=== PATIENT | male | born 1980 | race Caucasian/White ===

== ENCOUNTER 2019-02-26 17:10 | Emergency (ER) | payer BC ==
[~2019-02-26] VITALS: Ht 188 cm; Wt 90.7 kg
[2019-02-26 17:15] VITALS: BP_SYST 115
--- NOTE | 2019-02-26 17:15 | NUR ---
BROUGHT BACK TO BED #3 PT USING CRUTCHES, PLACED IN BED AND TRIAGED. REPORT GIVEN TO BETY
--- NOTE | 2019-02-26 17:25 | NUR ---
Patient comes to ER in personal vehicle accompanied by significant other, patient is AOx4, verbal and ambulatory. Patient has complaint of pain to LT leg, more to LT Knee and LT Ankle. Patient states that he doesn't remember falling due to recreational drinking but his partner says he definately "fell and banged up his knee" AROM of toes and ankle with pain, no loss of sensation to toes, pulses regular. No other complaint or injury at this time.
--- NOTE | 2019-02-26 17:30 | NUR ---
DR ALEMAN at bedside for ER evaluation.
[2019-02-26] MEDS ORDERED: IBUPROFEN 800 MG TABLET PO ONE (18:30)
--- NOTE | 2019-02-26 18:30 | NUR ---
Medicated per MD orders. Will cont to monitor
[2019-02-26] MEDS ORDERED: KETOROLAC TROMETHAMINE 30 MG VIAL ONE (19:14)
--- NOTE | 2019-02-26 19:25 | NUR ---
NICKIE wrap applied to left knee, non-constrictively, left knee immobilizer applied. Pt refused to have NICKIE wrap placed to left ankle. Pt states that he would rather do it at home. NICKIE wrap provided. Pt fitted with crutches with return demonstration.
[2019-02-26 19:30] VITALS: BP_SYST 128
--- NOTE | 2019-02-26 19:30 | NUR ---
Patient given written and verbal discharge instructions and verbalizes understanding. ER MD discussed with patient the results and treatment provided. Patient in stable condition. ID arm band removed. Rx of Atarax and Motrin given. Patient educated on pain management and to follow up with PMD. Pain Scale 1/10. Opportunity for questions provided and answered. Medication side effect fact sheet provided.
== END 2019-02-26 19:30 | disposition home or self-care (01) ==
LOC: SED 17:10
DX: S83.92XA Sprain of unspecified site of left knee, initial encounter (principal); S93.402A Sprain of unspecified ligament of left ankle, initial encounter; G47.00 Insomnia, unspecified; W19.XXXA Unspecified fall, initial encounter; Y93.89 Activity, other specified; Y92.89 Other specified places as the place of occurrence of the external cause; Y99.8 Other external cause status
CPT/HCPCS: 29505; 73564; 73610; 99283; J1885

== ENCOUNTER 2023-01-08 00:51 | Emergency (ER) | payer BC ==
[~2023-01-08] VITALS: Ht 188 cm; Wt 96.2 kg
[2023-01-08 01:00] VITALS: BP_SYST 144
--- NOTE | 2023-01-08 01:14 | NUR ---
Patient to ER bed 08 to gown for evaluation. Side rails up. Report given to KEYANNA PASCUAL.
--- NOTE | 2023-01-08 01:20 | NUR ---
First contact. Pt placed in gown and on monitor.
[2023-01-08] MEDS ORDERED: ONDANSETRON HCL 4 MG/2 ML VIAL IVP ONE (01:30)
[2023-01-08] MEDS ORDERED: NACL 0.9% 1,000 ML IV ONE (01:30)
[2023-01-08] MEDS ORDERED: MORPHINE 2 MG/ML INJ. SYRINGE IVP ONE (01:30)
[2023-01-08 02:09] LABS: BASOPHILS # (AUTO) 0.1 K/uL (0.0-0.2); BASOPHILS % (AUTO) 0.9 % (0.0-2.0); EOSINOPHILS # (AUTO) 0.3 K/uL (0.0-0.4); EOSINOPHILS % (AUTO) 3.5 % (0.0-4.0); HEMATOCRIT 41.3 % (36-54); HEMOGLOBIN 14.3 g/dL (14.0-18.0); LYMPHOCYTES # (AUTO) 2.8 K/uL (1.0-5.5); LYMPHOCYTES % (AUTO) 33.5 % (20.5-51.5); MEAN CORPUSCULAR HEMOGLOBIN 30 pg (27-31); MEAN CORPUSCULAR HGB CONC 35 % (32-36); MEAN CORPUSCULAR VOLUME 87 fL (79.0-98.0); MONOCYTES # (AUTO) 0.5 K/uL (0.0-1.0); MONOCYTES % (AUTO) 5.9 % (1.7-9.3); NEUTROPHILS # (AUTO) 4.7 K/uL (1.8-7.7); NEUTROPHILS % (AUTO) 56.2 % (40.0-70.0); PLATELET COUNT (AUTO) 210 K/uL (130-430); RED BLOOD CELL COUNT(AUTO) 4.75 MIL/uL (4.2-6.2); WHITE BLOOD COUNT (AUTO) 8.3 K/uL (4.8-10.8)
[2023-01-08 02:23] LABS: CALCIUM 9.1 mg/dL (8.4-11.0); CREATININE 1.11 mg/dL (0.55-1.30); TOTAL BILIRUBIN 0.5 mg/dL (0.0-1.0)
[2023-01-08 02:24] LABS: ALBUMIN 4.1 g/dL (3.4-4.8)
[2023-01-08 02:56] LABS: BILIRUBIN,URINE NEGATIVE (NEGATIVE); BLOOD, URINE NEGATIVE (NEGATIVE); CLARITY/URINE CLEAR (CLEAR); COLOR,URINE YELLOW (YELLOW); GLUCOSE,URINE NEGATIVE (NEGATIVE); KETONES,URINE NEGATIVE (NEGATIVE); LEUKOCYTE ESTERASE ,URINE NEGATIVE (NEGATIVE); NITRITE, URINE NEGATIVE (NEGATIVE); PH,URINE 7.5 (5.0-8.0); PROTEIN URINE NEGATIVE (NEGATIVE)
[2023-01-08] MEDS ORDERED: MORPHINE 4 MG INJ. 4 MG/ML VIAL IVP ONE (04:00)
[2023-01-08 04:01] VITALS: BP_SYST 122
--- NOTE | 2023-01-08 04:34 | NUR ---
Pt refused morphine. Dr. Ahmadi aware.
[2023-01-08] MEDS ORDERED: FAMO40TA7 PO (04:38)
--- NOTE | 2023-01-08 04:45 | NUR ---
Patient given written and verbal discharge instructions and verbalizes understanding. ER MD discussed with patient the results and treatment provided. Patient in stable condition. ID arm band removed. IV catheter removed intact and dressing applied, no active bleeding. Rx of famotidine given. Patient educated on pain management and to follow up with PMD. Opportunity for questions provided and answered.
== END 2023-01-08 04:45 | disposition home or self-care (01) ==
LOC: SED 00:51
DX: K80.20 Calculus of gallbladder without cholecystitis without obstruction (principal); R10.11 Right upper quadrant pain; R11.0 Nausea; R10.13 Epigastric pain; Z79.899 Other long term (current) drug therapy
CPT/HCPCS: 99285; 74176; 96374; 96361; 96375; 80053; 82150; 83690; 85025; 36415; 76376; 81003; J2405; J2270; J7030